=== PATIENT | female | born 1980 | race Two or more races ===

== ENCOUNTER 2018-08-27 22:02 | Inpatient (IN) | payer MEDICAID, OTHER ==
[~2018-08-27] VITALS: Ht 167.6 cm; Wt 57.6 kg
[2018-08-27 23:37] LABS: BASOPHILS % 1.5 % (0.0-2.0); EOSINOPHILS % 1.1 % (0.0-5.0); HEMATOCRIT. 28.8 % (36.0-48.0); HEMOGLOBIN. 8.9 g/dL (12.0-16.0); LYMPHOCYTES % 40.3 % (20.0-50.0); MEAN CORPUSCULAR HEMOGLOBIN 27.7 pg (28.0-32.0); MEAN PLATELET VOLUME 8.1 fl (7.4-10.4); MONOCYTES % 11.5 % (2.0-8.0); NEUTROPHILS % 45.6 % (40.0-76.0); PLATELET 325 x1000/uL (130-400); RED CELL DISTRIBUTION WIDTH 20.5 % (11.6-14.6)
[2018-08-27 23:45] LABS: HCG SCREEN NEGATIVE
[2018-08-27 23:46] LABS: INR 1.1; PROTHROMBIN TIME 11.3 sec (9.1-11.1)
[2018-08-28 00:12] LABS: CHLORIDE 112 mEq/L (98-107)
[2018-08-28 00:13] LABS: CREATINE KINASE 139 IU/L (26-192)
[2018-08-28 00:14] LABS: ETHANOL BLOOD 390 mg/dL
[2018-08-28] MEDS ORDERED: ASPIRIN 325MG EC TABLET PO ONE (00:15)
[2018-08-28 00:30] LABS: LDL CHOLESTEROL 57 mg/dL (5-100)
[2018-08-28] MEDS ORDERED: SODIUM CHLORIDE 0.9% 1000ML BAG (SEPSIS BOLUS) IV ONE (00:30)
[2018-08-28 02:07] LABS: CLARITY URINE CLEAR (CLEAR); COLOR URINE YELLOW (YELLOW); KETONES URINE TRACE (NEGATIVE); LEUKOCYTE ESTERASE URINE NEGATIVE (NEGATIVE); NITRITE URINE NEGATIVE (NEGATIVE); OCCULT BLOOD URINE NEGATIVE (NEGATIVE); PH URINE 5.5 (4.5-8.0); PROTEIN URINE 1+ (NEGATIVE); SPECIFIC GRAVITY URINE 1.075 (1.005-1.030)
[2018-08-28 02:39] LABS: *AMPHETAMINES SCREEN URINE NEGATIVE (NEGATIVE); *BENZODIAZEPINES SCREEN URINE NEGATIVE (NEGATIVE); *COCAINE SCREEN URINE NEGATIVE (NEGATIVE); METHADONE URINE SCREEN NEGATIVE (NEGATIVE); OPIATES URINE SCREEN NEGATIVE (NEGATIVE)
[2018-08-28 02:40] LABS: *BARBITURATES SCREEN URINE NEGATIVE (NEGATIVE); CANNABINOID URINE SCREEN NEGATIVE (NEGATIVE); PHENCYCLIDINE URINE SCREEN NEGATIVE (NEGATIVE)
[2018-08-28] MEDS ORDERED: IOHEXOL-350 100 ML BOTTLE ONE (03:33)
[2018-08-28] MEDS ORDERED: FOLIC ACID 1 MG, THIAMINE HCL 100 MG, MVI, ADULT NO.1 10 ML in DEXTROSE 5% WATER 1,000 ML IV SCH ×8 (09:15→10:00)
[2018-08-28] MEDS ORDERED: ONDANSETRON HCL 4MG/2ML INJ IV PRN (09:15)
[2018-08-28] MEDS: LORAZEPAM 2MG/ML CPJ IV PRN ×2 (10:00→21:23)
[2018-08-28 12:00] VITALS: BP 125/96
[2018-08-28] MEDS: CHLORDIAZEPOXIDE 25MG CAPSULE PO SCH ×2 (13:51→17:15)
[2018-08-28 16:00] VITALS: BP 126/98
[2018-08-28 20:00] VITALS: BP 120/90
[2018-08-29] VITALS: BP 123/82
[2018-08-29] MEDS: CHLORDIAZEPOXIDE 25MG CAPSULE PO SCH ×3 (02:25→16:58)
[2018-08-29 04:00] VITALS: BP 111/74
[2018-08-29 08:00] VITALS: BP 111/72
[2018-08-29] MEDS ORDERED: ASPIRIN 81MG TABLET PO SCH (09:00)
[2018-08-29] MEDS: FOLIC ACID 1 MG, THIAMINE HCL 100 MG, MVI, ADULT NO.1 10 ML in DEXTROSE 5% WATER 1,000 ML IV SCH ×4 (11:46)
[2018-08-29 12:00] VITALS: BP 119/89
[2018-08-29 16:00] VITALS: BP 126/86
[2018-08-29] MEDS: OMEPRAZOLE 20MG CAPSULE EXTENDED RELEASE PO SCH (17:01)
[2018-08-29 18:40] LABS: BASOPHILS % 0.6 % (0.0-2.0); EOSINOPHILS % 1.4 % (0.0-5.0); HEMOGLOBIN. 7.7 g/dL (12.0-16.0); LYMPHOCYTES % 16.8 % (20.0-50.0); MEAN CORPUSCULAR HEMOGLOBIN 27.7 pg (28.0-32.0); MEAN CORPUSCULAR VOLUME 90.3 fL (81.0-99.0); MEAN PLATELET VOLUME 8.9 fl (7.4-10.4); MONOCYTES % 8.1 % (2.0-8.0); NEUTROPHILS % 73.1 % (40.0-76.0); PLATELET 286 x1000/uL (130-400); RED BLOOD CELL COUNT 2.77 mill/uL (4.2-5.4); RED CELL DISTRIBUTION WIDTH 21.3 % (11.6-14.6)
[2018-08-29 19:13] LABS: CHLORIDE 103 mEq/L (98-107)
[2018-08-29 20:00] VITALS: BP 124/88
[2018-08-29] MEDS: LORAZEPAM 2MG/ML CPJ IV PRN ×2 (21:43→21:44)
[2018-08-30] VITALS (11 sets, daily range): BP systolic 102–126; BP diastolic 67–92
[2018-08-30] MEDS: CHLORDIAZEPOXIDE 25MG CAPSULE PO SCH ×3 (03:37→17:04)
[2018-08-30] MEDS: OMEPRAZOLE 20MG CAPSULE EXTENDED RELEASE PO SCH (06:21)
[2018-08-30 07:29] LABS: BASOPHILS % 0.7 % (0.0-2.0); EOSINOPHILS % 2.3 % (0.0-5.0); HEMATOCRIT. 22.5 % (36.0-48.0); LYMPHOCYTES % 26.2 % (20.0-50.0); MEAN CORPUSCULAR HEMOGLOBIN 27.7 pg (28.0-32.0); MEAN CORPUSCULAR VOLUME 88.6 fL (81.0-99.0); MEAN PLATELET VOLUME 8.5 fl (7.4-10.4); MONOCYTES % 9.6 % (2.0-8.0); NEUTROPHILS % 61.2 % (40.0-76.0); PLATELET 268 x1000/uL (130-400); RED BLOOD CELL COUNT 2.54 mill/uL (4.2-5.4); RED CELL DISTRIBUTION WIDTH 21.2 % (11.6-14.6)
[2018-08-30 07:56] LABS: CHLORIDE 107 mEq/L (98-107)
[2018-08-30] MEDS: FOLIC ACID 1 MG, THIAMINE HCL 100 MG, MVI, ADULT NO.1 10 ML in DEXTROSE 5% WATER 1,000 ML IV SCH ×4 (12:30)
[2018-08-30] MEDS ORDERED: SORBITOL 70% SOLN 30ML PO ONE (14:45)
[2018-08-30 16:13] LABS: AMYLASE 132 IU/L (25-115)
[2018-08-30 16:15] LABS: TOTAL IRON BINDING CAPACITY 358 ug/dL (250-450)
[2018-08-30 16:55] LABS: VITAMIN B12 SERUM 875 pg/mL (211-911)
[2018-08-30 17:02] LABS: FOLIC ACID (FOLATE) SERUM > 20.00 ng/mL (>5.38)
[2018-08-30 18:20] LABS: FERRITIN 19 ng/mL (10-291)
[2018-08-30] MEDS ORDERED: ACETAMINOPHEN 325MG TABLET PO PRN (21:15)
[2018-08-30] MEDS ORDERED: HYDROCODONE/ACETAMINOPHEN 5/325MG TABLET PO PRN (21:15)
[2018-08-30 23:03] LABS: HEMATOCRIT 27.1 % (36.0-48.0); HEMOGLOBIN 8.7 g/dL (12.0-16.0)
[2018-08-31] VITALS: BP 114/83
[2018-08-31] MEDS: CHLORDIAZEPOXIDE 25MG CAPSULE PO SCH ×3 (01:46→19:18)
[2018-08-31 04:00] VITALS: BP 115/79
[2018-08-31] MEDS: OMEPRAZOLE 20MG CAPSULE EXTENDED RELEASE PO SCH (06:31)
[2018-08-31 07:48] LABS: BASOPHILS % 1.4 % (0.0-2.0); EOSINOPHILS % 3.1 % (0.0-5.0); HEMATOCRIT. 24.9 % (36.0-48.0); HEMOGLOBIN. 8.2 g/dL (12.0-16.0); LYMPHOCYTES % 24.9 % (20.0-50.0); MEAN CORPUSCULAR HEMOGLOBIN 28.5 pg (28.0-32.0); MEAN CORPUSCULAR VOLUME 86.9 fL (81.0-99.0); MEAN PLATELET VOLUME 9.2 fl (7.4-10.4); MONOCYTES % 10.2 % (2.0-8.0); NEUTROPHILS % 60.4 % (40.0-76.0); PLATELET 270 x1000/uL (130-400); RED BLOOD CELL COUNT 2.87 mill/uL (4.2-5.4); RED CELL DISTRIBUTION WIDTH 20.1 % (11.6-14.6)
[2018-08-31 07:55] LABS: CHLORIDE 106 mEq/L (98-107)
[2018-08-31 08:00] VITALS: BP 121/87
[2018-08-31 12:00] VITALS: BP 121/89
[2018-08-31] MEDS ORDERED: SORBITOL 70% SOLN 30ML PO ONE ×2 (16:00→20:00)
[2018-08-31 16:19] VITALS: BP 121/88
[2018-08-31] MEDS: FERROUS SULFATE 325MG TABLET PO SCH (17:40)
[2018-08-31] MEDS: FOLIC ACID 1 MG, THIAMINE HCL 100 MG, MVI, ADULT NO.1 10 ML in DEXTROSE 5% WATER 1,000 ML IV SCH ×4 (19:18)
[2018-08-31 20:00] VITALS: BP 123/88
[2018-08-31] MEDS: ASCORBIC ACID 500 MG TABLET PO SCH (20:22)
[2018-09-01] VITALS: BP 126/93
[2018-09-01] MEDS: CHLORDIAZEPOXIDE 25MG CAPSULE PO SCH ×2 (02:46→14:07)
[2018-09-01 04:00] VITALS: BP 114/69
[2018-09-01] MEDS: OMEPRAZOLE 20MG CAPSULE EXTENDED RELEASE PO SCH (06:16)
[2018-09-01 06:31] LABS: EOSINOPHILS % 3.1 % (0.0-5.0); HEMOGLOBIN. 8.6 g/dL (12.0-16.0); LYMPHOCYTES % 24.7 % (20.0-50.0); MEAN CORPUSCULAR VOLUME 87.7 fL (81.0-99.0); MEAN PLATELET VOLUME 9.1 fl (7.4-10.4); MONOCYTES % 11.8 % (2.0-8.0); NEUTROPHILS % 58.4 % (40.0-76.0); PLATELET 296 x1000/uL (130-400); RED BLOOD CELL COUNT 3.08 mill/uL (4.2-5.4); RED CELL DISTRIBUTION WIDTH 20.4 % (11.6-14.6)
[2018-09-01 06:54] LABS: CHLORIDE 107 mEq/L (98-107)
[2018-09-01] MEDS ORDERED: NA PHOS,M-B/NA PHOS,DI-BA ENEMA 118ML PR ONE (07:00)
[2018-09-01] MEDS: FERROUS SULFATE 325MG TABLET PO SCH ×2 (07:40→14:08)
[2018-09-01 08:00] VITALS: BP 108/75
[2018-09-01] MEDS ORDERED: MIDAZOLAM HCL 2 MG/2 ML VIAL ONE (12:00)
[2018-09-01] MEDS ORDERED: PROPOFOL 200MG/20ML VIAL IV ONE ×3 (12:00→12:51)
[2018-09-01] MEDS ORDERED: LIDOCAINE HCL 1% 20ML VIAL (Pyxis) INJ ONE (12:01)
[2018-09-01] MEDS ORDERED: SIMETHICONE 40 MG/0.6 ML 30ML ONE (12:03)
[2018-09-01] MEDS: ASCORBIC ACID 500 MG TABLET PO SCH (14:07)
[2018-09-01] MEDS: FOLIC ACID 1 MG, THIAMINE HCL 100 MG, MVI, ADULT NO.1 10 ML in DEXTROSE 5% WATER 1,000 ML IV SCH ×4 (14:09)
[2018-09-01 15:30] VITALS: BP 108/75
== END 2018-09-01 16:48 | disposition home or self-care (01) | DRG 241 ==
LOC: ER 22:02 → 8WST 08-28 00:34 → EDBEDREQTM 08-28 00:37 → EDBEDREQ 08-28 00:37 → EDBEDREQDT 08-28 00:37 → EDBEDREQSVC 08-28 00:37 → EDBEDREQTM 08-28 01:45 → EDBEDREQSVC 08-28 01:45 → EDBEDREQ 08-28 01:45 → ENRESERV 08-28 07:05 → CANRESERV 08-28 07:05 → EDBEDREQSVC 08-28 09:24 → ENRESERV 08-28 10:43
PROVIDERS: ADMIT Internal Medicine; ATTEND Internal Medicine
PROC: 30233N1 Transfusion of Nonautologous Red Blood Cells into Peripheral Vein, Percutaneous Approach (ICD-10-PCS; principal; 2018-08-30)
PROC: 0DJ08ZZ Inspection of Upper Intestinal Tract, Via Natural or Artificial Opening Endoscopic (ICD-10-PCS; 2018-09-01)
PROC: 0DJD8ZZ Inspection of Lower Intestinal Tract, Via Natural or Artificial Opening Endoscopic (ICD-10-PCS; 2018-09-01)
PROC: 0DBP8ZX Excision of Rectum, Via Natural or Artificial Opening Endoscopic, Diagnostic (ICD-10-PCS; 2018-09-01)
DX: K29.21 Alcoholic gastritis with bleeding (principal); E87.0 Hyperosmolality and hypernatremia; E44.0 Moderate protein-calorie malnutrition; D57.1 Sickle-cell disease without crisis; G62.9 Polyneuropathy, unspecified; E87.8 Other disorders of electrolyte and fluid balance, not elsewhere classified; Y90.8 Blood alcohol level of 240 mg/100 ml or more; M21.332 Wrist drop, left wrist; F10.20 Alcohol dependence, uncomplicated; E61.1 Iron deficiency; K70.9 Alcoholic liver disease, unspecified; D17.9 Benign lipomatous neoplasm, unspecified; F17.200 Nicotine dependence, unspecified, uncomplicated; K64.4 Residual hemorrhoidal skin tags; K64.8 Other hemorrhoids; Z83.2 Family history of diseases of the blood and blood-forming organs and certain disorders involving the immune mechanism; Z88.6 Allergy status to analgesic agent; Z68.20 Body mass index [BMI] 20.0-20.9, adult
CPT/HCPCS: 36415; 70496; 70551; 71045; 72141; 76700; 80048; 80061; 80076; 80305; 82140; 82150; 82248; 82270; 82550; 82607; 82728; 82746; 82962; 83540; 83550; 83605; 83721; 84484; 84703; 85014; 85018; 85660; 86677; 86850; 86900; 86920; 88305; 93005; 96360; 97112; 97162; 97166; 97535; 99291; C1893; G0482; J2060; J2250; J2405; J2704; J3411; J3490; J7030; J7050; J7070; P9016; Q9967

== ENCOUNTER 2020-04-26 05:49 | Emergency (ER) | payer MEDICAID, OTHER ==
[~2020-04-26 05:49] MED LIST: FERR-71 MT; FOLI20CA MT; MULT-382 MT; THIA50TA10 MT
== END 2020-04-26 06:34 | disposition left against medical advice (07) ==
LOC: ER 05:49
DX: M79.606 Pain in leg, unspecified (principal); Z53.21 Procedure and treatment not carried out due to patient leaving prior to being seen by health care provider

== ENCOUNTER 2020-06-19 09:31 | Inpatient (IN) | payer MEDICAID ==
[~2020-06-19] VITALS: Ht 167.6 cm; Wt 52.8 kg
[2020-06-19] MEDS ORDERED: ONDANSETRON HCL 4MG/2ML INJ IV STA (10:27)
[2020-06-19] MEDS ORDERED: SODIUM CHLORIDE 0.9% 1,000 ML IV ONE (10:30)
[2020-06-19] MEDS ORDERED: FAMOTIDINE 20MG/2ML VIAL IV ONE (10:30)
[2020-06-19] MEDS ORDERED: FOLIC ACID 1 MG, THIAMINE HCL 100 MG, MVI, ADULT NO.1 10 ML in DEXTROSE 5% WATER 1,000 ML IV ONE ×4 (10:45)
[2020-06-19 11:07] LABS: HEMATOCRIT. 28.1 % (36.0-48.0); HEMOGLOBIN. 8.4 g/dL (12.0-16.0); MEAN CORPUSCULAR VOLUME 90.8 fL (81.0-99.0); MEAN PLATELET VOLUME 8.3 fl (7.4-10.4); PLATELET 237 x1000/uL (130-400); RED BLOOD CELL COUNT 3.09 mill/uL (4.2-5.4); RED CELL DISTRIBUTION WIDTH 19.4 % (11.6-14.6)
[2020-06-19 11:11] LABS: CHLORIDE 103 mEq/L (98-107)
[2020-06-19 11:13] LABS: ETHANOL BLOOD 155 mg/dL
[2020-06-19 11:26] LABS: HCG SCREEN NEGATIVE
[2020-06-19] MEDS ORDERED: LORAZEPAM 2MG/ML CPJ IV ONE ×2 (11:45→13:15)
[2020-06-19 11:52] LABS: PLATELET ESTIMATE NORMAL
[2020-06-19 11:57] LABS: *AMPHETAMINES SCREEN URINE NEGATIVE (NEGATIVE); *BARBITURATES SCREEN URINE NEGATIVE (NEGATIVE); *BENZODIAZEPINES SCREEN URINE NEGATIVE (NEGATIVE); *COCAINE SCREEN URINE NEGATIVE (NEGATIVE)
[2020-06-19 11:58] LABS: METHADONE URINE SCREEN NEGATIVE (NEGATIVE); OPIATES URINE SCREEN NEGATIVE (NEGATIVE); PHENCYCLIDINE URINE SCREEN NEGATIVE (NEGATIVE)
[2020-06-19 12:04] LABS: CANNABINOID URINE SCREEN PRESUMTIVE POSITIVE (NEGATIVE)
[2020-06-19 12:49] LABS: BG CARBOXYHEMOGLOBIN 0.3 % (0.5-1.5); BG FRACTION INSPIRED OXYGEN 21; BG HCO3 ACT 7.6 mmol/L (22.0-26.0); BG METHEMOGLOBIN 0.3 % (0.0-1.5); BG OXYHEMOGLOBIN 97.4 % (94.0-97.0); BG PCO2 18.1 mmHg (35.0-45.0); BG PO2 115.2 mmHg (75.0-100.0); BG SAMPLE SITE RIGHT BRACHIAL; BG TOTAL HEMOGLOBIN 8.5 g/dL (12.0-18.0); BG VENT MODE ROOM AIR
[2020-06-19] MEDS ORDERED: SODIUM BICARBONATE 8.4% 1 MEQ/ML 50ML SYR IV NR (15:00)
[2020-06-19] MEDS ORDERED: ONDANSETRON HCL 4MG/2ML INJ IV PRN (15:00)
[2020-06-19] MEDS: THIAMINE HCL 100MG TABLET PO SCH (15:38)
[2020-06-19] MEDS: PANTOPRAZOLE SODIUM 40 MG/VIAL IV SCH (15:38)
[2020-06-19] MEDS: SODIUM BICARBONATE 100 MEQ in DEXTROSE 5% WATER 900 ML IV SCH (16:51)
[2020-06-19] MEDS: IRON SUCROSE COMPLEX 100 MG/5 ML ML IV SCH (17:45)
[2020-06-19 18:49] VITALS: BP 136/79
[2020-06-19 20:00] VITALS: BP 131/103
[2020-06-19 20:07] VITALS: BP 121/84
[2020-06-19 21:30] LABS: HEMATOCRIT 21.1 % (36.0-48.0)
[2020-06-19 21:34] LABS: HEMOGLOBIN 6.6 g/dL (12.0-16.0)
[2020-06-19 22:00] VITALS: BP 121/86
[2020-06-19] MEDS: CHLORDIAZEPOXIDE 25MG CAPSULE PO SCH (22:49)
[2020-06-19] MEDS: LORAZEPAM 2MG/ML CPJ IV PRN (22:51)
[2020-06-19] MEDS: ACETAMINOPHEN 325MG TABLET PO PRN (23:25)
[2020-06-19 23:38] VITALS: BP 117/50
[2020-06-19 23:59] VITALS: BP 103/65
[2020-06-20] VITALS (20 sets, daily range): BP systolic 96–116; BP diastolic 59–98
[2020-06-20] MEDS: SODIUM BICARBONATE 100 MEQ in DEXTROSE 5% WATER 900 ML IV SCH (02:01)
[2020-06-20] MEDS: ACETAMINOPHEN 325MG TABLET PO PRN ×2 (04:39→13:53)
[2020-06-20] MEDS: LORAZEPAM 2MG/ML CPJ IV PRN ×3 (04:40→23:53)
[2020-06-20] MEDS: CHLORDIAZEPOXIDE 25MG CAPSULE PO SCH ×3 (05:54→21:45)
[2020-06-20 07:38] LABS: BASOPHILS % 0.6 % (0.0-2.0); EOSINOPHILS % 0.5 % (0.0-5.0); HEMATOCRIT. 26.8 % (36.0-48.0); HEMOGLOBIN. 8.8 g/dL (12.0-16.0); LYMPHOCYTES % 11.2 % (20.0-50.0); MEAN CORPUSCULAR HEMOGLOBIN 27.7 pg (28.0-32.0); NEUTROPHILS % 79.7 % (40.0-76.0); PLATELET 130 x1000/uL (130-400); RED BLOOD CELL COUNT 3.19 mill/uL (4.2-5.4)
[2020-06-20 07:39] LABS: CHLORIDE 105 mEq/L (98-107)
[2020-06-20 07:48] LABS: AMYLASE 40 IU/L (25-115)
[2020-06-20 07:49] LABS: TOTAL IRON BINDING CAPACITY 345 ug/dL (250-450)
[2020-06-20 07:53] LABS: FERRITIN 184 ng/mL (10-291)
[2020-06-20 07:54] LABS: PHOSPHORUS 0.8 mg/dL (2.5-4.9)
[2020-06-20 08:07] LABS: VITAMIN B12 SERUM 703 pg/mL (211-911)
[2020-06-20] MEDS: THIAMINE HCL 100MG TABLET PO SCH (08:33)
[2020-06-20] MEDS: PANTOPRAZOLE SODIUM 40 MG/VIAL IV SCH ×2 (08:33→17:03)
[2020-06-20] MEDS ORDERED: MULTIVITAMINS,THER W-MINERALS TABLET PO SCH (09:00)
[2020-06-20] MEDS ORDERED: FOLIC ACID 1MG TABLET PO SCH (09:00)
[2020-06-20] MEDS ORDERED: POTASSIUM CHLORIDE 20MEQ TABLET SR PO NR (10:45)
[2020-06-20] MEDS ORDERED: POTASSIUM PHOS,M-BASIC-D-BASIC 20 MMOL in DEXT 5% WATER 243.3333 ML IV SCH (11:30)
[2020-06-20] MEDS ORDERED: MAGNESIUM 2 G PREMIX 50 ML IV SCH (11:30)
[2020-06-20] MEDS: FOLIC ACID 1 MG, THIAMINE HCL 100 MG, MVI, ADULT NO.1 10 ML in DEXTROSE 5% WATER 1,000 ML IV SCH ×4 (16:46)
[2020-06-20] MEDS: IRON SUCROSE COMPLEX 100 MG/5 ML ML IV SCH (17:03)
[2020-06-20 20:32] LABS: CLARITY URINE CLEAR (CLEAR); COLOR URINE DARK YELLOW (YELLOW); KETONES URINE 3+ (NEGATIVE); LEUKOCYTE ESTERASE URINE TRACE (NEGATIVE); NITRITE URINE NEGATIVE (NEGATIVE); OCCULT BLOOD URINE NEGATIVE (NEGATIVE); PH URINE 7.5 (4.5-8.0); PROTEIN URINE TRACE (NEGATIVE); SPECIFIC GRAVITY URINE 1.031 (1.005-1.030)
[2020-06-20] MEDS: DEXT 5%/0.45% NACL 1000ML 1,000 ML IV SCH (23:13)
[2020-06-21] VITALS (11 sets, daily range): BP systolic 85–110; BP diastolic 56–73
[2020-06-21] MEDS: CHLORDIAZEPOXIDE 25MG CAPSULE PO SCH ×2 (05:33→14:30)
[2020-06-21 06:21] LABS: BASOPHILS % 0.8 % (0.0-2.0); EOSINOPHILS % 1.4 % (0.0-5.0); HEMATOCRIT. 26.1 % (36.0-48.0); HEMOGLOBIN. 8.7 g/dL (12.0-16.0); LYMPHOCYTES % 20.5 % (20.0-50.0); MEAN CORPUSCULAR HEMOGLOBIN 27.8 pg (28.0-32.0); MEAN CORPUSCULAR VOLUME 83.5 fL (81.0-99.0); MEAN PLATELET VOLUME 8.5 fl (7.4-10.4); MONOCYTES % 6.9 % (2.0-8.0); NEUTROPHILS % 70.4 % (40.0-76.0); PLATELET 123 x1000/uL (130-400); RED BLOOD CELL COUNT 3.13 mill/uL (4.2-5.4); RED CELL DISTRIBUTION WIDTH 17.5 % (11.6-14.6)
[2020-06-21 06:28] LABS: CHLORIDE 102 mEq/L (98-107)
[2020-06-21] MEDS: DEXT 5%/0.45% NACL 1000ML 1,000 ML IV SCH (09:53)
[2020-06-21] MEDS: PANTOPRAZOLE SODIUM 40 MG/VIAL IV SCH (09:53)
[2020-06-21] MEDS ORDERED: POTASSIUM PHOS,M-BASIC-D-BASIC 30 MMOL in DEXT 5% WATER 500 ML IV NR (10:30)
[2020-06-21] MEDS ORDERED: L25 MT (12:12)
[2020-06-21] MEDS ORDERED: MULT-382 MT (12:12)
[2020-06-21] MEDS ORDERED: FOLI-43 MT (12:12)
[2020-06-21] MEDS ORDERED: OMEP20CA14 MT (12:12)
[2020-06-21] MEDS ORDERED: THIA50TA10 MT (12:12)
[2020-06-21] MEDS: FOLIC ACID 1 MG, THIAMINE HCL 100 MG, MVI, ADULT NO.1 10 ML in DEXTROSE 5% WATER 1,000 ML IV SCH ×4 (13:30)
== END 2020-06-21 19:40 | disposition home or self-care (01) | DRG 282 ==
LOC: ER 10:02 → 3WST 14:17 → ENRESERV 17:10
PROVIDERS: ADMIT Internal Medicine; ATTEND Internal Medicine
PROC: 30233N1 Transfusion of Nonautologous Red Blood Cells into Peripheral Vein, Percutaneous Approach (ICD-10-PCS; principal; 2020-06-19)
DX: K86.1 Other chronic pancreatitis (principal); K92.0 Hematemesis; K29.70 Gastritis, unspecified, without bleeding; K20.90 Esophagitis, unspecified without bleeding; K22.6 Gastro-esophageal laceration-hemorrhage syndrome; E87.2 Acidosis; Y90.6 Blood alcohol level of 120-199 mg/100 ml; F41.9 Anxiety disorder, unspecified; F10.10 Alcohol abuse, uncomplicated; E88.89 Other specified metabolic disorders; F17.210 Nicotine dependence, cigarettes, uncomplicated; D57.3 Sickle-cell trait; D50.9 Iron deficiency anemia, unspecified; R74.01 Elevation of levels of liver transaminase levels; F12.10 Cannabis abuse, uncomplicated; Z82.49 Family history of ischemic heart disease and other diseases of the circulatory system; Z81.1 Family history of alcohol abuse and dependence; Z71.41 Alcohol abuse counseling and surveillance of alcoholic; Z71.6 Tobacco abuse counseling
CPT/HCPCS: 36415; 36600; 71045; 74018; 76700; 80048; 80053; 80076; 80305; 80320; 81003; 82150; 82248; 82375; 82607; 82728; 82805; 83540; 83550; 83605; 83735; 83880; 84100; 84132; 84484; 84703; 85014; 85018; 85025; 86850; 86900; 86920; 93005; 99291; C9113; J2060; J2405; J3411; J3475; J3490; J7030; J7060; J7070; P9016; G0480

== ENCOUNTER 2021-05-12 12:15 | Emergency (ER) | payer MEDICAID ==
[~2021-05-12] VITALS: Ht 167.6 cm; Wt 80.0 kg
[~2021-05-12 12:15] MED LIST changes: -FERR-71 MT; +FOLI-43 MT; -FOLI20CA MT; +L25 MT; +OMEP20CA14 MT
[2021-05-12] MEDS ORDERED: LORAZEPAM 2MG/ML CPJ IV STA (12:40)
[2021-05-12] MEDS ORDERED: BACITRACIN ZINC OINT UDPKT TOP ONE (12:45)
[2021-05-12] MEDS ORDERED: TETANUS, DIPHTHERIA, PERTUSSIS VAC/PF 0.5ML (>7YR OLD) IM ONE (12:45)
[2021-05-12] MEDS ORDERED: LIDOCAINE HCL/EPINEPHRINE 1%-EPI 1:100,000 20 ML VIAL INFIL ONE (12:45)
[2021-05-12] MEDS ORDERED: MORPHINE SULFATE 4 MG/ML CPJ (NOT FOR IM USE) IV STA (12:47)
[2021-05-12] MEDS ORDERED: ONDANSETRON HCL 4MG/2ML INJ IV STA (12:47)
[2021-05-12] MEDS ORDERED: SODIUM CHLORIDE 0.9% 1,000 ML IV ONE (13:00)
[2021-05-12 14:24] LABS: BASOPHILS % 1.2 % (0.0-2.0); EOSINOPHILS % 1.1 % (0.0-5.0); HEMATOCRIT. 35.1 % (36.0-48.0); HEMOGLOBIN. 11.6 g/dL (12.0-16.0); LYMPHOCYTES % 31.7 % (20.0-50.0); MEAN CORPUSCULAR VOLUME 99.9 fL (81.0-99.0); MEAN PLATELET VOLUME 8.5 fl (7.4-10.4); MONOCYTES % 6.6 % (2.0-8.0); NEUTROPHILS % 59.4 % (40.0-76.0); PLATELET 175 x1000/uL (130-400); RED BLOOD CELL COUNT 3.52 mill/uL (4.2-5.4); RED CELL DISTRIBUTION WIDTH 17.1 % (11.6-14.6)
[2021-05-12 14:27] LABS: CHLORIDE 110 mEq/L (98-107)
[2021-05-12 14:46] LABS: HCG SCREEN NEGATIVE
[2021-05-12 14:46] LABS: *AMPHETAMINES SCREEN URINE NEGATIVE (NEGATIVE); *BARBITURATES SCREEN URINE NEGATIVE (NEGATIVE); *BENZODIAZEPINES SCREEN URINE NEGATIVE (NEGATIVE); *COCAINE SCREEN URINE NEGATIVE (NEGATIVE)
[2021-05-12 14:48] LABS: ETHANOL BLOOD 353 mg/dL
[2021-05-12 14:48] LABS: METHADONE URINE SCREEN NEGATIVE (NEGATIVE); PHENCYCLIDINE URINE SCREEN NEGATIVE (NEGATIVE)
[2021-05-12 14:54] LABS: CANNABINOID URINE SCREEN PRESUMTIVE POSITIVE (NEGATIVE); OPIATES URINE SCREEN PRESUMTIVE POSITIVE (NEGATIVE)
[2021-05-12] MEDS ORDERED: IBUP-2028 MT (14:57)
[2021-05-12] MEDS ORDERED: POTASSIUM CHLORIDE 20MEQ TABLET SR PO ONE (15:00)
[2021-05-12 16:20] VITALS: BP 116/82
== END 2021-05-12 16:35 | disposition home or self-care (01) ==
LOC: ER 12:15
DX: S61.012A Laceration without foreign body of left thumb without damage to nail, initial encounter (principal); S61.512A Laceration without foreign body of left wrist, initial encounter; F10.229 Alcohol dependence with intoxication, unspecified; Y90.8 Blood alcohol level of 240 mg/100 ml or more; Z87.19 Personal history of other diseases of the digestive system; W22.8XXA Striking against or struck by other objects, initial encounter; W25.XXXA Contact with sharp glass, initial encounter; Y93.89 Activity, other specified; Y92.018 Other place in single-family (private) house as the place of occurrence of the external cause
CPT/HCPCS: 12004; 36415; 73110; 73130; 80053; 80305; 80320; 84703; 85025; 90471; 90715; 96361; 96374; 96375; 99284; J2060; J2270; J2405; J3490; J7030; G0480

== ENCOUNTER 2021-05-14 14:06 | Emergency (ER) | payer MEDICAID, OTHER ==
[~2021-05-14 14:06] MED LIST changes: +IBUP-2028 MT
[2021-05-14 14:17] VITALS: BP 136/96
[2021-05-14] MEDS ORDERED: BACITRACIN ZINC OINT UDPKT TOP ONE (17:30)
== END 2021-05-14 18:36 | disposition home or self-care (01) ==
LOC: ER 14:06
DX: Z48.00 Encounter for change or removal of nonsurgical wound dressing (principal)
CPT/HCPCS: 99281

== ENCOUNTER 2021-05-20 10:14 | Emergency (ER) | payer OTHER ==
[~2021-05-20] VITALS: Ht 167.6 cm; Wt 53.0 kg
[2021-05-20 10:16] VITALS: BP 167/93
[2021-05-20] MEDS ORDERED: CHLO25CA10 PO (11:00)
== END 2021-05-20 13:14 | disposition home or self-care (01) ==
LOC: ER 10:48
DX: F10.239 Alcohol dependence with withdrawal, unspecified (principal); Y90.9 Presence of alcohol in blood, level not specified
CPT/HCPCS: 99283

== ENCOUNTER 2021-05-20 17:45 | Emergency (ER) | payer OTHER ==
[~2021-05-20] VITALS: Ht 167.6 cm; Wt 61.0 kg
[~2021-05-20 17:45] MED LIST changes: +CHLO25CA10 PO
[2021-05-20 17:50] VITALS: BP 121/83
== END 2021-05-20 18:09 | disposition left against medical advice (07) ==
LOC: ER 17:45
DX: Z53.21 Procedure and treatment not carried out due to patient leaving prior to being seen by health care provider (principal)

== ENCOUNTER 2021-05-25 14:36 | Emergency (ER) | payer OTHER, MEDICAID ==
[~2021-05-25] VITALS: Ht 167.6 cm; Wt 50.8 kg
[2021-05-25 15:10] VITALS: BP 117/75
== END 2021-05-25 15:58 | disposition home or self-care (01) ==
LOC: ER 14:40
DX: S61.511D Laceration without foreign body of right wrist, subsequent encounter (principal); F10.20 Alcohol dependence, uncomplicated; D64.9 Anemia, unspecified; Z79.899 Other long term (current) drug therapy; X58.XXXD Exposure to other specified factors, subsequent encounter; Y90.9 Presence of alcohol in blood, level not specified
CPT/HCPCS: 99281

== ENCOUNTER 2021-05-28 10:43 | Emergency (ER) | payer MEDICAID, OTHER ==
[~2021-05-28] VITALS: Ht 167.6 cm; Wt 78.0 kg
[2021-05-28 10:55] VITALS: BP 136/95
== END 2021-05-28 11:42 | disposition left against medical advice (07) ==
LOC: ER 10:43
DX: O99.311 Alcohol use complicating pregnancy, first trimester (principal); O26.891 Other specified pregnancy related conditions, first trimester; G40.909 Epilepsy, unspecified, not intractable, without status epilepticus; R00.0 Tachycardia, unspecified; O16.1 Unspecified maternal hypertension, first trimester; Z3A.10 10 weeks gestation of pregnancy; Z88.6 Allergy status to analgesic agent
CPT/HCPCS: 93005; 99283

== ENCOUNTER 2021-05-28 15:24 | Emergency (ER) | payer OTHER ==
[~2021-05-28] VITALS: Ht 167.6 cm; Wt 64.0 kg
[2021-05-28] MEDS ORDERED: SODIUM CHLORIDE 0.9% 1,000 ML IV ONE (16:00)
[2021-05-28 16:37] LABS: BASOPHILS % 2.2 % (0.0-2.0); EOSINOPHILS % 1.4 % (0.0-5.0); HEMATOCRIT. 29.4 % (36.0-48.0); HEMOGLOBIN. 10.2 g/dL (12.0-16.0); MEAN CORPUSCULAR HEMOGLOBIN 34.3 pg (28.0-32.0); MEAN CORPUSCULAR VOLUME 99.1 fL (81.0-99.0); MONOCYTES % 6.5 % (2.0-8.0); NEUTROPHILS % 66.9 % (40.0-76.0); PLATELET 359 x1000/uL (130-400); RED BLOOD CELL COUNT 2.96 mill/uL (4.2-5.4)
[2021-05-28 16:42] LABS: CHLORIDE 105 mEq/L (98-107)
[2021-05-28 16:53] LABS: B-HCG QUANTITATIVE < 1 mIU/mL (<3)
[2021-05-28 16:56] LABS: ETHANOL BLOOD 382 mg/dL
[2021-05-28 18:19] LABS: CLARITY URINE CLOUDY (CLEAR); COLOR URINE DK YELLOW (YELLOW); KETONES URINE 2+ (NEGATIVE); LEUKOCYTE ESTERASE URINE NEGATIVE (NEGATIVE); NITRITE URINE NEGATIVE (NEGATIVE); OCCULT BLOOD URINE TRACE (NEGATIVE); PROTEIN URINE TRACE (NEGATIVE)
[2021-05-28 18:40] VITALS: BP 126/81
== END 2021-05-28 18:43 | disposition home or self-care (01) ==
LOC: ER 15:24
DX: O99.311 Alcohol use complicating pregnancy, first trimester (principal); O26.891 Other specified pregnancy related conditions, first trimester; F10.129 Alcohol abuse with intoxication, unspecified; O99.011 Anemia complicating pregnancy, first trimester; D64.89 Other specified anemias; K70.10 Alcoholic hepatitis without ascites; Z48.02 Encounter for removal of sutures; Y90.8 Blood alcohol level of 240 mg/100 ml or more; Z3A.10 10 weeks gestation of pregnancy; Z88.6 Allergy status to analgesic agent
CPT/HCPCS: 36415; 76830; 76856; 80053; 80320; 81003; 81025; 84702; 85025; 86850; 86900; 86901; 96360; 96361; 99284; J7030; G0480

== ENCOUNTER 2021-05-29 10:09 | Emergency (ER) | payer OTHER ==
[~2021-05-29] VITALS: Ht 170.2 cm; Wt 66.0 kg
[2021-05-29 10:11] VITALS: BP 136/88
== END 2021-05-29 11:26 | disposition home or self-care (01) ==
LOC: ER 10:09
DX: R53.1 Weakness (principal); Z48.02 Encounter for removal of sutures
CPT/HCPCS: 99283

== ENCOUNTER 2021-06-11 11:07 | Emergency (ER) | payer OTHER ==
[~2021-06-11] VITALS: Ht 167.6 cm; Wt 55.0 kg
[2021-06-11 11:22] VITALS: BP 124/79
== END 2021-06-11 11:33 | disposition home or self-care (01) ==
LOC: ER 11:07
DX: Z48.02 Encounter for removal of sutures (principal); Z88.6 Allergy status to analgesic agent; Z88.5 Allergy status to narcotic agent; Z88.8 Allergy status to other drugs, medicaments and biological substances; Z79.899 Other long term (current) drug therapy; Z86.59 Personal history of other mental and behavioral disorders
CPT/HCPCS: 99281

== ENCOUNTER 2021-08-11 14:54 | Emergency (ER) | payer MEDICAID ==
[~2021-08-11] VITALS: Ht 167.6 cm; Wt 60.0 kg
[2021-08-11] MEDS ORDERED: IBUPROFEN 400MG TABLET PO ONE (17:00)
[2021-08-11] MEDS ORDERED: IBUP-2028 MT (19:01)
[2021-08-11] MEDS ORDERED: HYDR-4001 MT (19:03)
[2021-08-11 19:10] VITALS: BP 123/76
== END 2021-08-11 19:12 | disposition home or self-care (01) ==
LOC: ER 14:54
DX: M25.572 Pain in left ankle and joints of left foot (principal); Z91.81 History of falling; S92.002A Unspecified fracture of left calcaneus, initial encounter for closed fracture; V03.90XA Pedestrian on foot injured in collision with car, pick-up truck or van, unspecified whether traffic or nontraffic accident, initial encounter; Y93.01 Activity, walking, marching and hiking; Y92.414 Local residential or business street as the place of occurrence of the external cause
CPT/HCPCS: 73610; 73630; 81025; 99284

== ENCOUNTER 2022-01-26 11:17 | Emergency (ER) | payer MEDICAID ==
[~2022-01-26] VITALS: Ht 170.2 cm; Wt 52.0 kg
[~2022-01-26 11:17] MED LIST changes: +HYDR-4001 MT
[2022-01-26] MEDS ORDERED: SODIUM CHLORIDE 0.9% 1,000 ML IV ONE (11:30)
[2022-01-26] MEDS ORDERED: FOLIC ACID 1 MG, THIAMINE HCL 100 MG, MVI, ADULT NO.1 10 ML in DEXTROSE 5% WATER 1,000 ML IV ONE ×4 (11:30)
[2022-01-26] MEDS ORDERED: LEVETIRACETAM 500MG PREMIX 100 ML IV ONE (11:30)
[2022-01-26 12:01] LABS: CHLORIDE 98 mEq/L (98-107)
[2022-01-26 12:05] LABS: BASOPHILS % 0.7 % (0.0-2.0); EOSINOPHILS % 1.8 % (0.0-5.0); HEMATOCRIT. 26.6 % (36.0-48.0); HEMOGLOBIN. 8.5 g/dL (12.0-16.0); LYMPHOCYTES % 20.7 % (20.0-50.0); MEAN CORPUSCULAR HEMOGLOBIN 25.6 pg (28.0-32.0); MEAN CORPUSCULAR VOLUME 79.9 fL (81.0-99.0); MEAN PLATELET VOLUME 7.9 fl (7.4-10.4); MONOCYTES % 8.5 % (2.0-8.0); NEUTROPHILS % 68.3 % (40.0-76.0); PLATELET 154 x1000/uL (130-400); RED BLOOD CELL COUNT 3.32 mill/uL (4.2-5.4); RED CELL DISTRIBUTION WIDTH 26.5 % (11.6-14.6)
[2022-01-26 12:08] LABS: ETHANOL BLOOD < 10 mg/dL
[2022-01-26 12:12] LABS: HCG SCREEN NEGATIVE
[2022-01-26] MEDS ORDERED: POTASSIUM CHLORIDE 20MEQ TABLET SR PO ONE (12:45)
[2022-01-26] MEDS ORDERED: KEPP500 MT (12:46)
[2022-01-26 13:46] LABS: PLATELET ESTIMATE NORMAL
[2022-01-26 14:48] VITALS: BP 115/79
[2022-01-26 18:14] LABS: *AMPHETAMINES SCREEN URINE NEGATIVE (NEGATIVE); *BARBITURATES SCREEN URINE NEGATIVE (NEGATIVE); *BENZODIAZEPINES SCREEN URINE NEGATIVE (NEGATIVE); *COCAINE SCREEN URINE NEGATIVE (NEGATIVE); CANNABINOID URINE SCREEN NEGATIVE (NEGATIVE); METHADONE URINE SCREEN NEGATIVE (NEGATIVE); OPIATES URINE SCREEN NEGATIVE (NEGATIVE); PHENCYCLIDINE URINE SCREEN NEGATIVE (NEGATIVE)
== END 2022-01-26 14:55 | disposition home or self-care (01) ==
LOC: ER 11:17
DX: G40.909 Epilepsy, unspecified, not intractable, without status epilepticus (principal); S00.512A Abrasion of oral cavity, initial encounter; E87.6 Hypokalemia; F10.21 Alcohol dependence, in remission; D64.9 Anemia, unspecified; Z88.6 Allergy status to analgesic agent; X58.XXXA Exposure to other specified factors, initial encounter; Y93.89 Activity, other specified; Y92.810 Car as the place of occurrence of the external cause
CPT/HCPCS: 36415; 80053; 80305; 80320; 83735; 84703; 85025; 93005; 96365; 96367; 99284; J1953; J3411; J3490; J7030; J7070; G0480

== ENCOUNTER 2022-02-10 19:35 | Emergency (ER) | payer MEDICAID, OTHER ==
[~2022-02-10] VITALS: Ht 170.2 cm; Wt 60.0 kg
[~2022-02-10 19:35] MED LIST changes: +KEPP500 MT
[2022-02-10] MEDS ORDERED: SODIUM CHLORIDE 0.9% 1,000 ML IV ONE (20:00)
[2022-02-10] MEDS ORDERED: LEVETIRACETAM 500MG PREMIX 100 ML IV ONE (20:00)
[2022-02-10 20:37] LABS: BASOPHILS % 2.3 % (0.0-2.0); HEMOGLOBIN. 9.8 g/dL (12.0-16.0); LYMPHOCYTES % 39.4 % (20.0-50.0); MEAN CORPUSCULAR HEMOGLOBIN 25.7 pg (28.0-32.0); MEAN CORPUSCULAR VOLUME 80.8 fL (81.0-99.0); MEAN PLATELET VOLUME 7.7 fl (7.4-10.4); MONOCYTES % 5.3 % (2.0-8.0); PLATELET 375 x1000/uL (130-400); RED BLOOD CELL COUNT 3.84 mill/uL (4.2-5.4); RED CELL DISTRIBUTION WIDTH 26.4 % (11.6-14.6)
[2022-02-10 20:42] LABS: CHLORIDE 109 mEq/L (98-107); HCG SCREEN NEGATIVE
[2022-02-10 20:57] LABS: ETHANOL BLOOD 427 mg/dL
[2022-02-10 21:11] LABS: PLATELET ESTIMATE NORMAL
[2022-02-10] MEDS ORDERED: KEPP500 MT (22:51)
[2022-02-10 23:00] VITALS: BP 112/75
== END 2022-02-10 23:05 | disposition home or self-care (01) ==
LOC: ER 19:35
DX: F10.129 Alcohol abuse with intoxication, unspecified (principal); R56.9 Unspecified convulsions; Z88.6 Allergy status to analgesic agent; Z88.5 Allergy status to narcotic agent; Z88.8 Allergy status to other drugs, medicaments and biological substances; Y90.8 Blood alcohol level of 240 mg/100 ml or more
CPT/HCPCS: 36415; 80053; 80320; 84703; 85025; 96365; 99284; J1953; J7030; Z7610; G0480

== ENCOUNTER 2022-02-14 00:59 | Emergency (ER) | payer OTHER ==
[~2022-02-14] VITALS: Ht 177.8 cm; Wt 49.0 kg
[2022-02-14 01:05] VITALS: BP 119/83
[2022-02-14] MEDS ORDERED: KEPP500 MT (02:04)
[2022-02-14] MEDS ORDERED: LEVETIRACETAM 500MG TABLET PO SCH (02:15)
[2022-02-14] MEDS ORDERED: LEVETIRACETAM 500MG PREMIX 100 ML IV ONE (02:15)
== END 2022-02-14 02:37 | disposition home or self-care (01) ==
LOC: ER 00:59
DX: G40.909 Epilepsy, unspecified, not intractable, without status epilepticus (principal); F10.129 Alcohol abuse with intoxication, unspecified; Y90.9 Presence of alcohol in blood, level not specified; Z91.14 Patient's other noncompliance with medication regimen; Z88.6 Allergy status to analgesic agent; Z88.5 Allergy status to narcotic agent
CPT/HCPCS: 99283

== ENCOUNTER 2022-11-12 14:30 | Emergency (ER) | payer MEDICAID, OTHER ==
[~2022-11-12] VITALS: Ht 162.6 cm; Wt 53.0 kg
[2022-11-12 14:32] VITALS: BP 135/83
[2022-11-12] MEDS ORDERED: LEVETIRACETAM 500MG PREMIX 100 ML IV ONE (15:00)
[2022-11-12 17:48] LABS: BASOPHILS % 0.3 % (0.0-2.0); EOSINOPHILS % 0.4 % (0.0-5.0); HEMATOCRIT. 35.1 % (36.0-48.0); HEMOGLOBIN. 11.7 g/dL (12.0-16.0); LYMPHOCYTES % 11.7 % (20.0-50.0); MEAN CORPUSCULAR HEMOGLOBIN 32.9 pg (28.0-32.0); MEAN CORPUSCULAR VOLUME 98.4 fL (81.0-99.0); MEAN PLATELET VOLUME 9.1 fl (7.4-10.4); MONOCYTES % 6.3 % (2.0-8.0); NEUTROPHILS % 81.3 % (40.0-76.0); PLATELET 158 x1000/uL (130-400); RED BLOOD CELL COUNT 3.57 mill/uL (4.2-5.4); RED CELL DISTRIBUTION WIDTH 17.9 % (11.6-14.6)
[2022-11-12 17:55] LABS: CHLORIDE 101 mEq/L (98-107)
[2022-11-12 18:04] LABS: ETHANOL BLOOD < 10 mg/dL
[2022-11-12] MEDS ORDERED: ACETAMINOPHEN 325MG TABLET PO ONE (19:00)
[2022-11-12] MEDS ORDERED: LEVETIRACETAM 500MG TABLET PO STA (20:11)
== END 2022-11-12 22:20 | disposition home or self-care (01) ==
LOC: ER 14:30
DX: G40.909 Epilepsy, unspecified, not intractable, without status epilepticus (principal); S09.8XXA Other specified injuries of head, initial encounter; Z88.6 Allergy status to analgesic agent; Z88.5 Allergy status to narcotic agent; W01.0XXA Fall on same level from slipping, tripping and stumbling without subsequent striking against object, initial encounter; Y93.89 Activity, other specified; Y92.512 Supermarket, store or market as the place of occurrence of the external cause; Y99.8 Other external cause status
CPT/HCPCS: 36415; 70450; 80053; 80320; 85025; 99284; Z7610; J1953; G0480

== ENCOUNTER 2023-02-21 13:28 | Emergency (ER) | payer MEDICAID ==
[~2023-02-21] VITALS: Ht 165.1 cm; Wt 65.0 kg
[2023-02-21] MEDS ORDERED: IBUP-2028 MT (13:52)
[2023-02-21] MEDS ORDERED: AMOX-494 MT (13:52)
[2023-02-21] MEDS ORDERED: LEVETIRACETAM 500MG PREMIX 100 ML IV ONE (14:00)
[2023-02-21] MEDS ORDERED: IBUPROFEN 400MG TABLET PO ONE (14:00)
[2023-02-21 15:27] VITALS: BP 114/69
== END 2023-02-21 15:29 | disposition home or self-care (01) ==
LOC: ER 13:28
DX: G43.109 Migraine with aura, not intractable, without status migrainosus (principal); K08.89 Other specified disorders of teeth and supporting structures; Z88.6 Allergy status to analgesic agent; Z88.5 Allergy status to narcotic agent; Z88.8 Allergy status to other drugs, medicaments and biological substances
CPT/HCPCS: 81025; 96365; 99284; J1953